=== PATIENT | female | born 1995 | race Caucasian/White ===

== ENCOUNTER 2016-07-18 20:06 | Outpatient (CLI) | payer OTHER ==
[~2016-07-18] VITALS: Ht 160 cm; Wt 69.5 kg
[~2016-07-18 20:06] MED LIST: ALBU18HF IH; PREN1TAB52 PO
== END 2016-07-18 20:57 | disposition home or self-care (01) ==
LOC: LDOP 20:06
PROVIDERS: ATTEND Obstetrics & Gynecology
DX: O46.93 Antepartum hemorrhage, unspecified, third trimester (principal); O99.513 Diseases of the respiratory system complicating pregnancy, third trimester; J45.909 Unspecified asthma, uncomplicated; Z3A.37 37 weeks gestation of pregnancy
CPT/HCPCS: 59025; 99211; G0463

== ENCOUNTER 2016-12-27 13:05 | Inpatient (IN) | payer OTHER ==
[~2016-12-27] VITALS: Ht 160 cm; Wt 58.1 kg
[~2016-12-27 13:05] MED LIST changes: +IBUP-1222 PO
[2016-12-27] MEDS ORDERED: METOCLOPRAMIDE 5 MG/ML, 2ML IVPush ONE (13:30)
[2016-12-27] MEDS ORDERED: SODIUM CHLORIDE FLUSH 10ML SYR IVF ONE (13:30)
[2016-12-27] MEDS ORDERED: DIPHENHYDRAMINE 50 MG/ML, 1ML IVPush ONE (13:30)
[2016-12-27] MEDS ORDERED: SODIUM CHLORIDE 0.9% 1,000ML IVBOLUS ONE (13:30)
[2016-12-27 13:56] LABS: HEMATOCRIT 38.6 % (34.6-47.8); HEMOGLOBIN 12.8 g/dL (11.7-16.4); WHITE BLOOD COUNT 7.2 x10^3/uL (3.4-10)
[2016-12-27 14:05] LABS: BLOOD UREA NITROGEN 12 mg/dL (7-18)
[2016-12-27] MEDS ORDERED: DIPHENHYDRAMINE 50 MG/ML, 1ML ONE (14:45)
[2016-12-27] MEDS ORDERED: METOCLOPRAMIDE 5 MG/ML, 2ML ONE (14:45)
[2016-12-27] MEDS ORDERED: KETOROLAC 30 MG/1 ML IVPush ONE (15:30)
[2016-12-27] MEDS ORDERED: KETOROLAC 30 MG/1 ML ONE (15:56)
[2016-12-27] MEDS ORDERED: HYDROmorphone 1 MG/ML, 1ML ONE (17:10)
[2016-12-27] MEDS ORDERED: HYDROmorphone 2 MG/ML, 1ML IVPush PRN ×2 (17:30→20:30)
[2016-12-27 18:00] LABS: GLUCOSE, CSF 41 mg/dL (40-80)
[2016-12-27] MEDS ORDERED: CEFTRIAXONE PMX 1GM/50ML 50 ML IV ONE (18:30)
[2016-12-27] MEDS ORDERED: CEFTRIAXONE PMX 1GM/50ML 50 ML ONE (18:59)
[2016-12-27] MEDS ORDERED: DOCUSATE 100 MG CAPSULE PO PRN (20:30)
[2016-12-27] MEDS ORDERED: VANCOMYCIN PER PHARMACY MC PRN (20:30)
[2016-12-27] MEDS ORDERED: DIPHENHYDRAMINE 25 MG CAPSULE PO PRN (20:30)
[2016-12-27 22:45] VITALS: BP 109/76
[2016-12-27] MEDS ORDERED: PHARMACOKINETIC MONITORING MC PRN (23:00)
[2016-12-27] MEDS: ENOXAPARIN 40 MG/0.4 ML SQ SCH (23:01)
[2016-12-27] MEDS: VANCOMYCIN PMX 1GM/200ML 200 ML IV SCH (23:31)
[2016-12-28] MEDS: HYDROcodone/APAP 5/325 TABLET PO PRN ×4 (01:58→17:59)
[2016-12-28 02:00] VITALS: BP 108/75
[2016-12-28] MEDS: ONDANSETRON ODT 4 MG PO PRN (03:59)
[2016-12-28 05:48] LABS: BLOOD UREA NITROGEN 9 mg/dL (7-18)
[2016-12-28 05:49] LABS: HEMATOCRIT 33.5 % (34.6-47.8); HEMOGLOBIN 11.3 g/dL (11.7-16.4); WHITE BLOOD COUNT 8.1 x10^3/uL (3.4-10)
[2016-12-28] MEDS: CEFTRIAXONE PMX 2GM/50ML 50 ML IV SCH ×2 (07:48→20:09)
[2016-12-28 09:14] VITALS: BP 92/64
[2016-12-28] MEDS: SODIUM CHLORIDE 0.9% 1,000 ML IV SCH ×2 (09:43→17:59)
[2016-12-28] MEDS: VANCOMYCIN PMX 1GM/200ML 200 ML IV SCH ×2 (11:01→23:03)
[2016-12-28] MEDS ORDERED: DIPHENHYDRAMINE 25 MG CAPSULE PO PRN (13:00)
[2016-12-28 20:00] VITALS: BP 105/57
[2016-12-28] MEDS: ENOXAPARIN 40 MG/0.4 ML SQ SCH (20:09)
[2016-12-29] MEDS: SODIUM CHLORIDE 0.9% 1,000 ML IV SCH ×3 (02:45→18:22)
[2016-12-29] MEDS: HYDROcodone/APAP 5/325 TABLET PO PRN ×2 (02:46→08:29)
[2016-12-29 08:20] VITALS: BP 107/75
[2016-12-29] MEDS: CEFTRIAXONE PMX 2GM/50ML 50 ML IV SCH (08:21)
[2016-12-29] MEDS: ONDANSETRON ODT 4 MG PO PRN (08:29)
[2016-12-29 09:24] LABS: HEMATOCRIT 31.3 % (34.6-47.8); HEMOGLOBIN 10.5 g/dL (11.7-16.4); WHITE BLOOD COUNT 2.9 x10^3/uL (3.4-10)
[2016-12-29 09:27] LABS: BLOOD UREA NITROGEN 4 mg/dL (7-18)
[2016-12-29 14:33] VITALS: BP 110/78
[2016-12-29] MEDS ORDERED: IBUPROFEN 200 MG TABLET PO PRN (17:30)
[2016-12-29] MEDS: IBUPROFEN 800 MG TABLET PO PRN (18:22)
[2016-12-29] MEDS: ENOXAPARIN 40 MG/0.4 ML SQ SCH (19:58)
[2016-12-29 20:00] VITALS: BP 120/73
[2016-12-30] MEDS: SODIUM CHLORIDE 0.9% 1,000 ML IV SCH ×2 (01:57→09:46)
[2016-12-30 02:12] VITALS: BP 97/59
[2016-12-30 05:47] LABS: BLOOD UREA NITROGEN 4 mg/dL (7-18)
[2016-12-30 05:50] LABS: HEMATOCRIT 31.6 % (34.6-47.8); HEMOGLOBIN 10.8 g/dL (11.7-16.4); WHITE BLOOD COUNT 2.3 x10^3/uL (3.4-10)
[2016-12-30] MEDS: IBUPROFEN 800 MG TABLET PO PRN (08:03)
[2016-12-30 08:08] VITALS: BP 107/71
[2016-12-30 14:24] VITALS: BP 114/76
[2016-12-30] MEDS ORDERED: IBUP-1223 PO (15:03)
== END 2016-12-30 15:45 | disposition home or self-care (01) | DRG 872 ==
LOC: ED 15:17 → EDIP 19:12 → 3WST 22:28
PROVIDERS: ADMIT Family Medicine; ATTEND Internal Medicine
PROC: 009U3ZZ Drainage of Spinal Canal, Percutaneous Approach (ICD-10-PCS; principal; 2016-12-27)
DX: A41.9 Sepsis, unspecified organism (principal); D70.9 Neutropenia, unspecified; A87.9 Viral meningitis, unspecified; D64.9 Anemia, unspecified; G43.009 Migraine without aura, not intractable, without status migrainosus; H10.9 Unspecified conjunctivitis; H54.7 Unspecified visual loss; I10 Essential (primary) hypertension; Z80.3 Family history of malignant neoplasm of breast; Z82.79 Family history of other congenital malformations, deformations and chromosomal abnormalities
CPT/HCPCS: 36415; 62270; 70450; 80048; 82040; 82945; 84157; 84703; 85025; 87070; 87205; 87252; 87798; 89051; 96361; 96365; 96375; J0696; J1170; J1650; J1885; J3370; Q0162; J1200; J2765; J7030; Q0163

== ENCOUNTER 2017-01-09 15:07 | Emergency (ER) | payer OTHER ==
[~2017-01-09] VITALS: Ht 160 cm; Wt 57.1 kg
[~2017-01-09 15:07] MED LIST changes: +IBUP-1223 PO
[2017-01-09] MEDS ORDERED: PROCHLORPERAZINE 5 MG/ML, 2ML ONE (15:30)
[2017-01-09] MEDS ORDERED: DIPHENHYDRAMINE 50 MG/ML, 1ML IVPush ONE (15:30)
[2017-01-09] MEDS ORDERED: SODIUM CHLORIDE 0.9% 1,000ML IVBOLUS ONE (15:30)
[2017-01-09] MEDS ORDERED: DIPHENHYDRAMINE 50 MG/ML, 1ML ONE (15:30)
[2017-01-09] MEDS ORDERED: PROCHLORPERAZINE 5 MG/ML, 2ML IVPush ONE (15:30)
[2017-01-09 15:40] LABS: HEMATOCRIT 37.1 % (34.6-47.8); HEMOGLOBIN 12.3 g/dL (11.7-16.4); WHITE BLOOD COUNT 8.2 x10^3/uL (3.4-10)
[2017-01-09 15:50] LABS: ASPARTATE AMINO TRANSFERASE 16 U/L (15-37); BLOOD UREA NITROGEN 13 mg/dL (7-18)
[2017-01-09 16:55] VITALS: BP 112/34
== END 2017-01-09 17:20 | disposition home or self-care (01) ==
LOC: ED 16:13
DX: G43.011 Migraine without aura, intractable, with status migrainosus (principal); G97.1 Other reaction to spinal and lumbar puncture; J45.909 Unspecified asthma, uncomplicated
CPT/HCPCS: 36415; 80053; 84703; 85025; 96361; 96374; 96375; 99285; J0780; J1200; J7030

== ENCOUNTER 2017-01-11 10:51 | Emergency (ER) | payer OTHER ==
[~2017-01-11] VITALS: Ht 160 cm; Wt 56.1 kg
[2017-01-11 10:57] VITALS: BP 125/86
[2017-01-11] MEDS ORDERED: MIDAZOLAM 1 MG/ML, 5ML ONE (13:07)
[2017-01-11] MEDS ORDERED: MIDAZOLAM 1 MG/ML, 2ML IVPush ONE (13:30)
== END 2017-01-11 16:15 | disposition home or self-care (01) ==
LOC: ED 13:29
DX: G97.1 Other reaction to spinal and lumbar puncture (principal); R51 Headache; J45.909 Unspecified asthma, uncomplicated
CPT/HCPCS: 96374; 99284; J2250

== ENCOUNTER 2017-11-26 14:38 | Emergency (ER) | payer MEDICAID, OTHER ==
[~2017-11-26] VITALS: Ht 160 cm; Wt 53.4 kg
[2017-11-26 14:44] VITALS: BP 132/83
[2017-11-26 15:13] LABS: BASOPHILS # (AUTO) 0.03 x10^3/uL (0-0.1); BASOPHILS % (AUTO) 1 % (0-1); EOSINOPHILS # (AUTO) 0.08 x10^3/uL (0-0.4); EOSINOPHILS % (AUTO) 2 % (1-7); LYMPHOCYTES # (AUTO) 1.22 x10^3/uL (1-3.4); LYMPHOCYTES % (AUTO) 22 % (22-44); MD NO; MEAN CORPUSCULAR HEMOGLOBIN 30.1 pg (27.0-34.8); MEAN CORPUSCULAR HGB CONC 33.9 g/dL (32.4-35.8); MEAN CORPUSCULAR VOLUME 88.7 fL (80-100); MEAN PLATELET VOLUME 9.4 fL (7.4-10.4); MONOCYTES % (AUTO) 7 % (2-9); NEUTROPHILS # (AUTO) 3.81 x10^3/uL (1.8-6.8); NEUTROPHILS % (AUTO) 69 % (42-75); PLATELET COUNT 202 x10^3/uL (130-400); RED BLOOD COUNT 4.84 x10^6/uL (3.82-5.3); RED CELL DISTRIBUTION WIDTH 14.3 % (9.6-15.2)
[2017-11-26 15:30] LABS: CULTURE INDICATED? YES; MICROSCOPIC INDICATED
[2017-11-26] MEDS ORDERED: RHOGAM FROM BLOOD BANK 1 NOTE EA IM/IV ONE (18:30)
== END 2017-11-26 19:21 | disposition home or self-care (01) ==
LOC: ED 19:00
DX: O20.9 Hemorrhage in early pregnancy, unspecified (principal); Z3A.01 Less than 8 weeks gestation of pregnancy; R10.30 Lower abdominal pain, unspecified; J45.909 Unspecified asthma, uncomplicated
CPT/HCPCS: 36415; 76801; 81001; 84702; 85025; 86850; 86900; 87086; 96372; 99285; J2790; 36430

== ENCOUNTER 2018-09-29 13:28 | Emergency (ER) | payer MEDICAID, OTHER ==
[~2018-09-29] VITALS: Ht 160 cm; Wt 56.3 kg
[2018-09-29 15:02] LABS: BASOPHILS # (AUTO) 0.04 x10^3/uL (0-0.1); BASOPHILS % (AUTO) 1 % (0-1); EOSINOPHILS # (AUTO) 0.12 x10^3/uL (0-0.4); EOSINOPHILS % (AUTO) 2 % (1-7); LYMPHOCYTES # (AUTO) 1.98 x10^3/uL (1-3.4); LYMPHOCYTES % (AUTO) 24 % (22-44); MD NO; MEAN CORPUSCULAR HEMOGLOBIN 31.1 pg (27.0-34.8); MEAN CORPUSCULAR HGB CONC 33.6 g/dL (32.4-35.8); MEAN CORPUSCULAR VOLUME 92.4 fL (80-100); MEAN PLATELET VOLUME 8.6 fL (7.4-10.4); MONOCYTES # (AUTO) 0.24 x10^3/uL (0.2-0.8); MONOCYTES % (AUTO) 3 % (2-9); NEUTROPHILS # (AUTO) 5.75 x10^3/uL (1.8-6.8); NEUTROPHILS % (AUTO) 71 % (42-75); PLATELET COUNT 257 x10^3/uL (130-400); RED CELL DISTRIBUTION WIDTH 13.3 % (9.6-15.2)
--- NOTE | 2018-09-29 15:03 | NUR ---
Pt to 21 from lobby
--- NOTE | 2018-09-29 15:09 | NUR ---
PT TO US
--- NOTE | 2018-09-29 15:46 | NUR ---
PT BACK FROM US, PT WITH C/O CRAMPS AND VB. SOAKED THROUGH HER DRESS AND NOW SOAKING THROUGH PAD. THIS BEGAN APPROXIMATELY 12 TODAY. PT IS S/P IVF June. PT DENIES LANTIGUA, DIZZINESS, TRAUMA. ERMD AT BEDSIDE.
[2018-09-29 16:34] VITALS: BP 107/65
[2018-09-29 17:04] VITALS: BP 110/70
[2018-09-29 17:31] VITALS: BP 105/59
== END 2018-09-29 17:31 | disposition home or self-care (01) ==
LOC: ED 15:31
DX: O20.0 Threatened abortion (principal); J45.909 Unspecified asthma, uncomplicated; Z3A.01 Less than 8 weeks gestation of pregnancy
CPT/HCPCS: 36415; 76801; 84702; 85025; 86850; 86900; 96372; 99284; J2790; 36430; 99285

== ENCOUNTER 2019-04-29 11:49 | Outpatient (CLI) | payer OTHER ==
[~2019-04-29] VITALS: Ht 160 cm; Wt 69.0 kg
[2019-04-29 12:04] VITALS: BP 118/80
[2019-04-29] MEDS ORDERED: PREN-3 PO (12:10)
== END 2019-04-29 13:27 | disposition home or self-care (01) ==
LOC: LDOP 11:49
PROVIDERS: ATTEND Obstetrics & Gynecology
DX: O42.913 Preterm premature rupture of membranes, unspecified as to length of time between rupture and onset of labor, third trimester (principal); Z3A.36 36 weeks gestation of pregnancy; Z88.6 Allergy status to analgesic agent; Z88.5 Allergy status to narcotic agent
CPT/HCPCS: 59025; 89060; 99211; G0463; Q0114

== ENCOUNTER 2019-05-16 17:55 | Outpatient (CLI) | payer OTHER ==
[~2019-05-16] VITALS: Ht 160 cm; Wt 70.9 kg
[~2019-05-16 17:55] MED LIST changes: +PREN-3 PO
[2019-05-16 18:01] VITALS: BP 117/71
== END 2019-05-16 18:33 | disposition home or self-care (01) ==
LOC: LDOP 17:55
PROVIDERS: ATTEND Obstetrics & Gynecology
DX: O26.893 Other specified pregnancy related conditions, third trimester (principal); R10.9 Unspecified abdominal pain; Z3A.38 38 weeks gestation of pregnancy; Z88.5 Allergy status to narcotic agent; Z88.6 Allergy status to analgesic agent
CPT/HCPCS: 59025; 99211; G0463

== ENCOUNTER 2019-05-21 04:54 | Inpatient (IN) | payer OTHER ==
[~2019-05-21] VITALS: Ht 160 cm; Wt 72.7 kg
[2019-05-21] MEDS ORDERED: D5%-LACTATED RINGERS 1,000 ML IV SCH (04:55)
[2019-05-21] MEDS ORDERED: LACTATED RINGERS 1,000 ML IV SCH (04:55)
[2019-05-21] MEDS ORDERED: OXYTOCIN 30U/ 0.9% NaCL 500ML 500 ML IV PRN (04:55)
[2019-05-21] MEDS ORDERED: OXYTOCIN 30U/ 0.9% NaCL 500ML 500 ML IV ONE (04:55)
[2019-05-21] MEDS ORDERED: OXYTOCIN 30U/ 0.9% NaCL 500ML 500 ML ONE (04:56)
[2019-05-21] MEDS ORDERED: MISOPROSTOL 200 MCG TABLET ONE (04:57)
[2019-05-21] MEDS ORDERED: LIDOCAINE 1%, 20ML ONE (04:57)
[2019-05-21] MEDS ORDERED: FENTANYL PF 100 MCG/2ML IV PRN (05:00)
[2019-05-21] MEDS ORDERED: ONDANSETRON 2MG/ML, 2ML IVPush PRN (05:00)
[2019-05-21] MEDS ORDERED: FENTANYL PF 100 MCG/2ML IVPush PRN (05:00)
[2019-05-21] MEDS ORDERED: CALCIUM CARBONATE 500 MG TAB.CHEW PO PRN (05:00)
[2019-05-21] MEDS ORDERED: TERBUTALINE 1 MG/ML, 1ML IVPush PRN (05:00)
[2019-05-21 05:12] VITALS: BP 120/81
[2019-05-21 05:43] LABS: BASOPHILS # (AUTO) 0.01 x10^3/uL (0-0.1); BASOPHILS % (AUTO) 0 % (0-1); EOSINOPHILS # (AUTO) 0.01 x10^3/uL (0-0.4); EOSINOPHILS % (AUTO) 0 % (1-7); LYMPHOCYTES # (AUTO) 1.83 x10^3/uL (1-3.4); LYMPHOCYTES % (AUTO) 23 % (22-44); MD NO; MEAN CORPUSCULAR HEMOGLOBIN 29.6 pg (27.0-34.8); MEAN CORPUSCULAR HGB CONC 32.7 g/dL (32.4-35.8); MEAN CORPUSCULAR VOLUME 90.6 fL (80-100); MEAN PLATELET VOLUME 9.4 fL (7.4-10.4); MONOCYTES # (AUTO) 0.44 x10^3/uL (0.2-0.8); MONOCYTES % (AUTO) 5 % (2-9); NEUTROPHILS # (AUTO) 5.77 x10^3/uL (1.8-6.8); NEUTROPHILS % (AUTO) 72 % (42-75); PLATELET COUNT 186 x10^3/uL (130-400); RED BLOOD COUNT 3.89 x10^6/uL (3.82-5.3); RED CELL DISTRIBUTION WIDTH 13.6 % (9.6-15.2)
[2019-05-21] MEDS ORDERED: ONDANSETRON 2MG/ML, 2ML ONE (08:12)
[2019-05-21] MEDS ORDERED: FENTANYL PF 100 MCG/2ML ONE ×2 (08:16→09:59)
[2019-05-21] MEDS ORDERED: NEWBORN KIT ONE (08:28)
[2019-05-21] MEDS ORDERED: IBUPROFEN 600 MG TABLET ONE (10:11)
[2019-05-21] MEDS ORDERED: OXYTOCIN 30U/ 0.9% NaCL 500ML 500 ML IV SCH ×2 (10:14)
[2019-05-21] MEDS: IBUPROFEN 600 MG TABLET PO PRN ×2 (10:30→17:44)
[2019-05-21] MEDS ORDERED: DOCUSATE 100 MG CAPSULE PO PRN (10:30)
[2019-05-21] MEDS ORDERED: ONDANSETRON 2MG/ML, 2ML IV PRN (10:30)
[2019-05-21] MEDS ORDERED: MISOPROSTOL 200 MCG TABLET PR PRN (10:30)
[2019-05-21] MEDS ORDERED: SIMETHICONE 80 MG CHEW TAB PO PRN (10:30)
[2019-05-21] MEDS ORDERED: ACETAMINOPHEN 325 MG TABLET PO PRN (10:30)
[2019-05-21 12:36] VITALS: BP 107/72
[2019-05-21 17:48] LABS: MD NO; MEAN PLATELET VOLUME 9.8 fL (7.4-10.4); RED BLOOD COUNT 3.07 x10^6/uL (3.82-5.3)
[2019-05-21 17:52] LABS: BASOPHILS # (AUTO) 0.04 x10^3/uL (0-0.1); BASOPHILS % (AUTO) 0 % (0-1); EOSINOPHILS % (AUTO) 0 % (1-7); LYMPHOCYTES # (AUTO) 1.27 x10^3/uL (1-3.4); LYMPHOCYTES % (AUTO) 10 % (22-44); MEAN CORPUSCULAR HEMOGLOBIN 30.5 pg (27.0-34.8); MEAN CORPUSCULAR HGB CONC 33.6 g/dL (32.4-35.8); MEAN CORPUSCULAR VOLUME 90.9 fL (80-100); MONOCYTES # (AUTO) 0.69 x10^3/uL (0.2-0.8); MONOCYTES % (AUTO) 5 % (2-9); NEUTROPHILS # (AUTO) 10.81 x10^3/uL (1.8-6.8); NEUTROPHILS % (AUTO) 84 % (42-75); PLATELET COUNT 177 x10^3/uL (130-400); RED CELL DISTRIBUTION WIDTH 13.2 % (9.6-15.2)
[2019-05-21 20:30] VITALS: BP 100/68
[2019-05-21] MEDS ORDERED: RHOGAM FROM BLOOD BANK 1 NOTE EA IM/IV ONE (23:00)
[2019-05-22 01:00] VITALS: BP 109/61
[2019-05-22] MEDS: IBUPROFEN 600 MG TABLET PO PRN ×2 (01:07→08:28)
[2019-05-22 05:00] VITALS: BP 101/63
[2019-05-22 08:20] VITALS: BP 100/67
[2019-05-22] MEDS ORDERED: PRENATAL VIT/IRON/FA 1 EACH TABLET PO SCH (09:00)
[2019-05-22] MEDS ORDERED: IBUP-1222 PO (10:50)
== END 2019-05-22 12:20 | disposition home or self-care (01) | DRG 807 ==
LOC: LDIP 04:54 → 2NW 11:54
PROVIDERS: ADMIT Obstetrics & Gynecology; ATTEND Obstetrics & Gynecology
PROC: 10E0XZZ Delivery of Products of Conception, External Approach (ICD-10-PCS; principal; 2019-05-21)
PROC: 10907ZC Drainage of Amniotic Fluid, Therapeutic from Products of Conception, Via Natural or Artificial Opening (ICD-10-PCS; 2019-05-21)
PROC: 3E0234Z Introduction of Serum, Toxoid and Vaccine into Muscle, Percutaneous Approach (ICD-10-PCS; 2019-05-21)
DX: O77.0 Labor and delivery complicated by meconium in amniotic fluid (principal); Z37.0 Single live birth; O76 Abnormality in fetal heart rate and rhythm complicating labor and delivery; Z3A.39 39 weeks gestation of pregnancy; Z88.5 Allergy status to narcotic agent; Z88.8 Allergy status to other drugs, medicaments and biological substances; Z23 Encounter for immunization
CPT/HCPCS: 36415; 85025; 85461; 86592; 86850; 86900; G0378; J2405; J2790; J3010; J2590; J7120

== ENCOUNTER → 2019-12-16 | Outpatient (CLI) | payer BC, MEDICAID ==
[~2019-12-16] MED LIST changes: +ALBU18HF INH
[2019-12-16 16:09] LABS: MICROSCOPIC AUTO
[2019-12-16 16:17] LABS: BASOPHILS # (AUTO) 0.03 x10^3/uL (0-0.1); BASOPHILS % (AUTO) 1 % (0-1); EOSINOPHILS # (AUTO) 0.06 x10^3/uL (0-0.4); EOSINOPHILS % (AUTO) 1 % (1-7); LYMPHOCYTES # (AUTO) 1.82 x10^3/uL (1-3.4); LYMPHOCYTES % (AUTO) 35 % (22-44); MD NO; MEAN CORPUSCULAR HEMOGLOBIN 23.8 pg (27.0-34.8); MEAN CORPUSCULAR HGB CONC 31.2 g/dL (32.4-35.8); MEAN CORPUSCULAR VOLUME 76.3 fL (80-100); MEAN PLATELET VOLUME 9.5 fL (7.4-10.4); MONOCYTES # (AUTO) 0.28 x10^3/uL (0.2-0.8); MONOCYTES % (AUTO) 6 % (2-9); NEUTROPHILS # (AUTO) 2.98 x10^3/uL (1.8-6.8); NEUTROPHILS % (AUTO) 58 % (42-75); PLATELET COUNT 255 x10^3/uL (130-400); RED BLOOD COUNT 4.45 x10^6/uL (3.82-5.3); RED CELL DISTRIBUTION WIDTH 16.4 % (9.6-15.2)
== END | disposition home or self-care (01) ==
LOC: STAR 15:10
PROVIDERS: ATTEND Obstetrics & Gynecology
DX: Z01.818 Encounter for other preprocedural examination (principal)
CPT/HCPCS: 36415; 81001; 84702; 85025

== ENCOUNTER → 2019-12-18 | Outpatient (CLI) | payer BC, MEDICAID | END | disposition home or self-care (01) | LOC: STAR 15:17 | PROVIDERS: ATTEND Anesthesiology | DX: Z01.812 Encounter for preprocedural laboratory examination (principal); Z20.828 Contact with and (suspected) exposure to other viral communicable diseases | CPT/HCPCS: 36415; 87635 ==

== ENCOUNTER 2019-12-23 12:51 | Day surgery (SDC) | payer BC, MEDICAID ==
[~2019-12-23] VITALS: Ht 160 cm; Wt 62.8 kg
[2019-12-23] MEDS ORDERED: CHLORHEXIDINE 15 ML UDC MM STA (13:06)
[2019-12-23 13:14] VITALS: BP 114/81
[2019-12-23] MEDS ORDERED: LACTATED RINGERS 1,000 ML IV ONE (13:19)
[2019-12-23] MEDS ORDERED: LIDOCAINE-MPF 1%, 2ML INFIL STA (13:31)
[2019-12-23] MEDS ORDERED: LIDOCAINE-MPF 1%, 2ML ONE (13:32)
[2019-12-23 13:37] LABS: HCG UR SG 1.011 (1.003-1.030)
[2019-12-23] MEDS ORDERED: BUPIVACAINE/PF 0.25% ONE (14:29)
[2019-12-23] MEDS ORDERED: EPINEPHRINE 1 MG/ML, 1ML ONE (14:29)
[2019-12-23] MEDS ORDERED: MIDAZOLAM 1 MG/ML, 2ML ONE (14:34)
[2019-12-23] MEDS ORDERED: FENTANYL PF 250 MCG/5ML ONE (14:34)
[2019-12-23] MEDS ORDERED: ROCURONIUM 10MG/ML,5ML ONE (14:41)
[2019-12-23] MEDS ORDERED: DEXAMETHASONE 4 MG/ML, 1ML ONE (14:41)
[2019-12-23] MEDS ORDERED: PROPOFOL 10 MG/ML, 20ML ONE (14:41)
[2019-12-23] MEDS ORDERED: SUCCINYLCHOLINE 20 MG/ML, 10ML ONE (14:52)
[2019-12-23] MEDS ORDERED: KETOROLAC 30 MG/1 ML ONE (15:17)
[2019-12-23] MEDS ORDERED: ONDANSETRON 2MG/ML, 2ML ONE (15:17)
[2019-12-23] MEDS ORDERED: SUGAMMADEX 200 MG/2 ML IVPush ONE (15:18)
[2019-12-23] MEDS ORDERED: ALBUTEROL SULFATE 2.5 MG/3 ML NPPB PRN (15:30)
[2019-12-23] MEDS ORDERED: OXYcodone 5 MG/5 ML ORAL.SOL UDC PO PRN (15:30)
[2019-12-23] MEDS ORDERED: DIPHENHYDRAMINE 50 MG/ML, 1ML IVPush PRN (15:30)
[2019-12-23] MEDS ORDERED: ACETAMINOPHEN 325 MG TABLET PO PRN (15:30)
[2019-12-23] MEDS ORDERED: HYDROmorphone 1 MG/ML, 1ML INJ IVPush PRN (15:30)
[2019-12-23] MEDS ORDERED: PROMETHAZINE 25 MG/ML, 1ML IVPush PRN (15:30)
[2019-12-23] MEDS ORDERED: LABETALOL 5MG/ML, 20ML IV PRN (15:30)
[2019-12-23] MEDS ORDERED: PROMETHAZINE 12.5 MG SUPP PR PRN (15:30)
[2019-12-23] MEDS ORDERED: hydrALAzine 20 MG/ML, 1ML IV PRN (15:30)
[2019-12-23] MEDS ORDERED: ONDANSETRON 2MG/ML, 2ML IVPush PRN (15:30)
[2019-12-23] MEDS ORDERED: MEPERIDINE/PF 25MG/0.5ML IVPush PRN (15:30)
[2019-12-23] MEDS ORDERED: FENTANYL PF 100 MCG/2ML IV PRN (15:30)
[2019-12-23] MEDS ORDERED: MIDAZOLAM 1 MG/ML, 2ML IV PRN (15:30)
[2019-12-23] MEDS ORDERED: DIAZEPAM 5 MG/ML, 2ML IVPush PRN (15:30)
[2019-12-23] MEDS ORDERED: EPHEDRINE 50 MG/ML, 1ML IVPush PRN (15:30)
[2019-12-23] MEDS ORDERED: SILVER NITRATE STICK TP ONE (15:34)
[2019-12-23] MEDS ORDERED: FENTANYL PF 100 MCG/2ML ONE (16:34)
[2019-12-23] MEDS ORDERED: OXYcodone 5 MG/5 ML ORAL.SOL UDC ONE (16:34)
[2019-12-23] MEDS ORDERED: PROMETHAZINE 25 MG SUPP PR ONE (17:55)
== END 2019-12-23 18:25 | disposition home or self-care (01) ==
LOC: OUT 12:51
PROVIDERS: ATTEND Obstetrics & Gynecology
DX: Z30.2 Encounter for sterilization (principal); J45.909 Unspecified asthma, uncomplicated; Z88.5 Allergy status to narcotic agent; Z88.8 Allergy status to other drugs, medicaments and biological substances; Z98.890 Other specified postprocedural states; Z72.89 Other problems related to lifestyle; Z87.891 Personal history of nicotine dependence; Z80.3 Family history of malignant neoplasm of breast; Z80.41 Family history of malignant neoplasm of ovary; Z79.899 Other long term (current) drug therapy
CPT/HCPCS: 58670; 81025; 88302; J0171; J0330; J1100; J1885; J2250; J2405; J2704; J3010; J3490; J7120